=== PATIENT | female | born 1955 | race Caucasian/White ===

== ENCOUNTER 2016-11-21 06:08 | Day surgery (SDC) | payer OTHER ==
[2016-11-21] MEDS ORDERED: ATOR40TA16 PO (06:44)
[2016-11-21] MEDS ORDERED: CHOL5000 PO (06:44)
[2016-11-21] MEDS ORDERED: ASPI325T PO (06:44)
[2016-11-21] MEDS ORDERED: METOPROLOL TARTRATE 25 MG TAB PO PRN (07:00)
[2016-11-21] MEDS ORDERED: INSULIN HUMAN REGULAR 1,000 UNITS/10 ML VIAL SQ PRN (07:00)
[2016-11-21] MEDS ORDERED: LACTATED RINGER'S 1000 ML IV PRN (07:00)
[2016-11-21] MEDS ORDERED: POVIDONE IODINE 5% (ANTISEPSIS KIT) 4 APPLICATIONS EACH NARE PRN (07:00)
[2016-11-21] MEDS ORDERED: SODIUM CHLORID 0.9% 500 ML IV PRN (07:00)
[2016-11-21] MEDS ORDERED: CHLORHEXIDINE GLUCONATE 2 % 1 PACK (2 CLOTHS) TOPICAL PRN (07:00)
[2016-11-21] MEDS ORDERED: MISCELLANEOUS NURSING INFORMATION XX PRN (08:30)
[2016-11-21] MEDS ORDERED: PROPOFOL 200 MG/20 ML AMP IV ONE (09:33)
--- NOTE | 2016-11-21 09:49 | EKG ---
Date Performed: 11/21/2016 Time Performed: 06:34:52 PTAGE: 61 years EKG: Sinus rhythm . Septal T wave changes are nonspecific Low QRS voltages in precordial leads Borderline ECG NO PREVIOUS TRACING DOCTOR: Ras Malhotra Interpretating Date/Time 11/21/2016 09:47:43
--- NOTE | 2016-11-21 12:44 | ETE ---
Study Study Date:11/21/2016 STUDY CONCLUSIONS SUMMARY - Left ventricle: The cavity size was normal. Wall thickness was normal. Systolic function was normal. Wall motion was normal; there were no regional wall motion abnormalities. - Aortic valve: No evidence of vegetation. - Mitral valve: No evidence of vegetation. Mild regurgitation. - Left atrium: No evidence of thrombus in the atrial cavity or appendage. - Right atrium: No evidence of thrombus in the atrial cavity or appendage. - Atrial septum: No defect or patent foramen ovale was identified. - Tricuspid valve: No evidence of vegetation. - Pulmonic valve: No evidence of vegetation. If LV function is below 40, please consider prescribing an ACEI or ARB or document rationale for non-use. PROCEDURE DATA Consent: The risks, benefits, and alternatives to the procedure were explained to the patient and informed consent was obtained. Procedure: Initial setup. The patient was brought to the laboratory in the fasting state. Intravenous access was obtained. Surface ECG leads and pulse oximetric signals were monitored. Sedation. Conscious sedation was administered by cardiology staff. Transesophageal echocardiography. Topical anesthesia was obtained using viscous lidocaine. A transesophageal probe was inserted by the attending cleaning team member. Image quality was good. Intravenous contrast (agitated saline) was administered. Study completion: All IVs inserted during the procedure were removed. The patient tolerated the procedure well. There were no complications. Transesophageal echocardiography. 2D, complete spectral Doppler, and color Doppler. CARDIAC ANATOMY LEFT VENTRICLE: The cavity size was normal. Wall thickness was normal. Systolic function was normal. Wall motion was normal; there were no regional wall motion abnormalities. AORTIC VALVE: Structurally normal valve. Trileaflet; normal thickness leaflets. Cusp separation was normal. No evidence of vegetation. Doppler: No significant regurgitation. Aorta: - There was no atheroma. There was no evidence for dissection. Aortic root: The aortic root was not dilated. Ascending aorta: The ascending aorta was normal in size. Aortic arch: The aortic arch was normal in size. Descending aorta: The descending aorta was normal in size. MITRAL VALVE: Structurally normal valve. Leaflet separation was normal. No evidence of vegetation. Doppler: Mild regurgitation. LEFT ATRIUM: The atrium was normal in size. No evidence of thrombus in the atrial cavity or appendage. The appendage was morphologically a left appendage, multilobulated, and of normal size. Emptying velocity was normal. ATRIAL SEPTUM: No defect or patent foramen ovale was identified. RIGHT VENTRICLE: The cavity size was normal. Wall thickness was normal. Systolic function was normal. PULMONIC VALVE: Structurally normal valve. No evidence of vegetation. TRICUSPID VALVE: Structurally normal valve. Leaflet separation was normal. No evidence of vegetation. Doppler: No significant regurgitation. PULMONARY ARTERY: The main pulmonary artery was normal-sized. RIGHT ATRIUM: The atrium was normal in size. No evidence of thrombus in the atrial cavity or appendage. The appendage was morphologically a right appendage. PERICARDIUM: There was no pericardial effusion. Prepared and signed by Delroy Ansari [id number]
== END 2016-11-21 10:00 | disposition home or self-care (01) ==
LOC: HDOC 06:08 → HDIC 06:08 → HDOC 10:00
PROVIDERS: ATTEND Internal Medicine
DX: I34.0 Nonrheumatic mitral (valve) insufficiency (principal); E78.5 Hyperlipidemia, unspecified; E55.9 Vitamin D deficiency, unspecified; Z79.82 Long term (current) use of aspirin; Z86.73 Personal history of transient ischemic attack (TIA), and cerebral infarction without residual deficits
CPT/HCPCS: 93005; 93312; 93320; 93325